=== PATIENT | male | born 1960 | race Two or more races ===

== ENCOUNTER 2017-12-24 21:59 | Emergency (ER) | payer MEDICARE, MEDICAID ==
[2017-12-24] MEDS: BENZONATATE 100 MG CAP PO (23:15)
[2017-12-24] MEDS: guaiFENesin ER 600 MG TAB PO (23:15)
== END 2017-12-24 23:40 | disposition home or self-care (01) ==
LOC: M ED 21:59
DX: J20.8 Acute bronchitis due to other specified organisms (principal); I25.10 Atherosclerotic heart disease of native coronary artery without angina pectoris; I25.2 Old myocardial infarction; Z95.5 Presence of coronary angioplasty implant and graft; F17.210 Nicotine dependence, cigarettes, uncomplicated
CPT/HCPCS: 99282